=== PATIENT | male | born 1975 | race American Indian/Alaskan Native ===

== ENCOUNTER 2017-06-02 16:41 | Emergency (ER) | payer SELFPAY ==
[2015-10-22 13:45] VITALS: BP 152/101
== END 2017-06-02 17:00 | disposition left against medical advice (07) ==
LOC: ER 16:41
DX: Z53.21 Procedure and treatment not carried out due to patient leaving prior to being seen by health care provider (principal); R51 Headache

== ENCOUNTER 2019-11-13 01:44 | Emergency (ER) | payer SELFPAY ==
[~2019-11-13] VITALS: Ht 167.6 cm; Wt 86.0 kg
[2019-11-13 01:50] VITALS: BP 166/100
--- NOTE | 2019-11-13 02:05 | PHYS DOC ---
Past Medical History Past Medical History: No Pertinent History Past Surgical History: No Surgical History Smoking Status: Never Smoker Alcohol Use: None Drug Use: None Adult General Chief Complaint Chief Complaint: SORE THROAT HPI HPI 44-year-old male presents emergency Department complaints of sore throat, cough, congestion, no fever. States this is been ongoing 2 days he's having more difficulty swallowing feels like things are getting caught. No sick contacts. She describes intermittent nausea, no abdominal pain, chest pain, shortness of breath, headache or visual change. He is currently afebrile this time. He states eating food causes more discomfort. Review of Systems Review of Systems Constitutional: Denies fever or chills [] HENT: + sore throat Respiratory: intermittent cough, no shortness of breath [] Cardiovascular: No additional information not addressed in HPI [] GI: Denies abdominal pain, nausea, vomiting, bloody stools or diarrhea [] Musculoskeletal: Denies back pain or joint pain [] Neurologic: Denies headache, focal weakness or sensory changes [] All other systems were reviewed and found to be within normal limits, except as documented in this note. Current Medications Current Medications Current Medications Medications (Trade) Dose Ordered Sig/Zenon Start Time Stop Time Status Last Admin Dose Admin Dexamethasone Sodium Phosphate (Decadron) 20 mg 1X ONCE 11/13/19 02:30 11/13/19 02:31 DC 11/13/19 02:30 20 MG Diphenhydramine HCl (Benadryl Oral Elixir) 25 mg 1X ONCE 11/13/19 02:30 11/13/19 02:31 DC 11/13/19 02:29 25 MG Ondansetron HCl (Zofran Odt) 4 mg 1X ONCE 11/13/19 02:30 11/13/19 02:31 DC 11/13/19 02:28 4 MG Allergies Allergies Allergies Coded Allergies Type Severity Reaction Last Updated Verified No Known Drug Allergies 10/22/15 No Physical Exam Physical Exam Constitutional: Well developed, well nourished, no acute distress, non-toxic appearance. [] HENT: Normocephalic, atraumatic, bilateral external ears normal, oropharynx moist, no oral exudates, uvula inflamed, nose normal. [] Eyes: PERRLA, EOMI, conjunctiva normal, no discharge. [] Neck: Normal range of motion, no tenderness, supple, no stridor. [] Cardiovascular:Heart rate regular rhythm, no murmur [] Lungs & Thorax: Bilateral breath sounds clear to auscultation [] Abdomen: Bowel sounds normal, soft, no tenderness, no masses, no pulsatile masses. [] Skin: Warm, dry, no erythema, no rash. [] Back: No tenderness, no CVA tenderness. [] Extremities: No tenderness, no edema. [] Neurologic: Alert and oriented X 3, no focal deficits noted. [] Psychologic: Affect normal, judgement normal, mood normal. [] Current Patient Data Vital Signs Vital Signs Date Time Temp Pulse Resp B/P (MAP) Pulse Ox O2 Delivery O2 Flow Rate FiO2 11/13/19 01:50 97.8 87 16 166/100 (122) 96 Room Air 97.8 Lab Values Laboratory Tests Test 11/13/19 02:15 Influenza Type A Antigen Negative (NEGATIVE) Influenza Type B Antigen Negative (NEGATIVE) EKG EKG [] Radiology/Procedures Radiology/Procedures [] Course & Med Decision Making Course & Med Decision Making Pertinent Labs and Imaging studies reviewed. (See chart for details) []44-year-old male presents emergency Department complaints of sore throat, cough, congestion, no fever. States this is been ongoing 2 days he's having more difficulty swallowing feels like things are getting caught. No sick contacts. She describes intermittent nausea, no abdominal pain, chest pain, shortness of breath, headache or visual change. He is currently afebrile this time. He states eating food causes more discomfort. Decadron 20mg IM, benadryl po, Zofran po Influenza and strep negative Recommend prn zofran Recommend liquids as tolerated, ice chips and slowly advance Dragon Disclaimer Dragon Disclaimer This electronic medical record was generated, in whole or in part, using a voice recognition dictation system. Departure Departure Impression: Primary Impression: Uvulitis Disposition: 01 HOME, SELF-CARE Condition: STABLE Referrals: NO PCP (PCP) Patient Instructions: Uvulitis Additional Instructions: Recommend prn zofran Recommend liquids as tolerated, ice chips and slowly advance Zofran, Benadryl, Decadron given in ER Liquid tylenol/Liquid motrin as needed for pain Return to the ER if continued symptoms after 48 hours, worsening symptoms, fever, altered mental status Scripts Ondansetron Hcl (ZOFRAN) 4 Mg Tablet 1 TAB PO PRN Q6-8HRS for nausea, #12 TAB Prov: NINFA HINOJOSA MD 11/13/19 NINFA HINOJOSA MD Nov 13, 2019 02:05
[2019-11-13] MEDS ORDERED: diphenhydrAMINE ORAL ELIXIR 12.5 MG/5 ML ML PO ONE (02:30)
[2019-11-13] MEDS ORDERED: DEXAMETHASONE SOD PHOS 20 MG/5 ML VIAL. IM ONE (02:30)
[2019-11-13] MEDS ORDERED: ONDANSETRON ODT 4 MG TAB.RAPDIS. PO ONE (02:30)
[2019-11-13 02:39] LABS: INFLUENZA A PATIENT NEGATIVE (NEGATIVE); INFLUENZA B PATIENT NEGATIVE (NEGATIVE)
[2019-11-13] MEDS ORDERED: ONDA4TAB7 PO (02:58)
== END 2019-11-13 03:05 | disposition home or self-care (01) ==
LOC: ER 01:44
DX: K12.2 Cellulitis and abscess of mouth (principal); R05 Cough; R09.81 Nasal congestion; R13.10 Dysphagia, unspecified
CPT/HCPCS: 87070; 87804; 87880; 96372; 99283; J1100; Q0162